=== PATIENT | female | born 1980 | race Caucasian/White ===

== ENCOUNTER 2016-07-24 21:24 | Emergency (ER) | payer OTHER ==
[~2016-07-24] VITALS: Ht 160 cm; Wt 52.3 kg
[2016-07-24 21:27] VITALS: BP 113/76; PULSE 68; RESP 16; O2SAT 100
--- NOTE | 2016-07-24 21:35 | ED.REPORT ---
HPI-General Illness Date of Service Jul 24, 2016 ED Provider: Ryley Saba MD Pt is a healthy 36 y/o female presenting to the ED due to needle stick today at work. The patient was stuck in the left thumb with a needle while working at [employer]. The patient was recapping an insulin syringe and the cap fell off. The source patient is an inpatient at the hospital at that facility. Nursing Notes Stated Complaint: NEEDLE STICK AT WORK Chief Complaint: General Complaint Nursing Notes Reviewed: Yes Allergies: Coded Allergies: No Known Allergies (Unverified , 07/24/16) General Time Seen by MD: 21:32 Chief Complaint Other (needle stick) Hx Obtained From: Patient Arrived By: Walk-in Sudden in Onset?: No Onset Occurred: 1 - 4 hours ago Symptom Duration: Since onset Severity: Current: No pain currently Severity: Maximum: No pain Similar Sx Previous: No Past Medical History Past Medical History Denies Past Surgical History None reported Smoking History Unknown if Ever Smoker Social History Works in healthcare Drug Use: Denies drug use Ambulatory Status Independent Review of Systems +needle stick Full Review of Systems Constitutional: Denies: Chills, Fever Musculoskeletal: Denies: Extremity pain Complete sys rev & neg: except as marked. Physical Exam Vital Signs Vital Signs Date Time Temp Pulse Resp B/P Pulse Ox O2 Delivery O2 Flow Rate FiO2 07/24/16 21:27 36.3 68 16 113/76 100 Room Air Initial VS: Reviewed, Vital signs normal Head / Eyes: Atraumatic, Normocephalic, PERRL ENT: No scleral icterus Neck: Full range of motion Respiratory: No respiratory distress Cardiovascular: Intact distal pulses Abdomen / GI: No distention Skin: Warm, Dry, No cyanosis Neurologic: Alert, Oriented, Nonfocal Psychiatric: Mood/affect normal, Behavior normal, Normal thought content General/Constitutional: Awake, Alert, No acute distress, Well appearing, Well developed, Well hydrated, Well nourished, Cooperative, Not toxic appearing Wrist / Hand: Full range of motion, No swelling, No erythema, Non-tender, No snuffbox tenderness, No deformity, Neurologic intact, Vascular intact, No ligamentous injury, Tendon function NL, No compartment syndrome, No circumferential injury, No clubbing/cyanosis, No edema Needle size puncture raquel over the distal segment of left thumb with no surround erythema, tenderness, or warmth Interpretation & Diagnostics Lab Results Interpretation Test 07/24/16 22:04 Re-Eval/Medical Decision Med Decision/Clinical Course 36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 Patient reports she stuck herself with an insulin syringe. Source patient with unknown history of blood-borne pathogen. At patient's request and after her consent, I spoke with the patient's charge nurse at her Hospital and they were unclear on whether they could draw labs on the source patient and they would be determine in the morning. As a result, I discussed with patient and she requested to be started on HIV postexposure prophylaxis. First dose given here. Per protocol, prescribed Isentress 400 mg by mouth twice a day 30 days. She was drawn for HIV, hepatitis B and C. She will follow up with [facility]. She was given the needlestick packet. She will follow up with her Hospital to determine if the source patient will get labs. Time of Eval: 22:40 Re-Evaluation/Progress Note: Pt rechecked. Informed pt of plan for treatment. Pt understands and agrees with plan for treatment. F/U instructions and RTER warnings given. All questions addressed. Counseled Regarding: Diagnosis, Need for follow-up, When/why to return to ED Discharge & Departure Primary Impression: Needle stick injury of finger Encounter type: initial encounter Qualified Code: S61.239A - Puncture wound without foreign body of unspecified finger without damage to nail, initial encounter Disposition: Home Discharge Condition All VS Reviewed: Yes Condition: Stable Patient Instructions: Needle Stick Injuries (ED) Additional Instructions: Call employee [facility] tomorrow. Take the post-exposure prophylaxis if you choose pending the results of the source of the needle stick. Referrals: [facility] Scribe Attestation Portions of this note were transcribed by Ronal Norris. I, Dr. Saba, personally performed the history, physical exam and medical decision-making; I reviewed and confirmed the accuracy of the information in the transcribed note. Signed by Donato Kirby, 07/24/16 - 2229 Ryley Saba MD Jul 24, 2016 21:35 RONAL NORRIS Jul 24, 2016 22:06
== END 2016-07-24 23:12 | disposition home or self-care (01) ==
LOC: SED 21:24
DX: S61.032A Puncture wound without foreign body of left thumb without damage to nail, initial encounter (principal); W46.0XXA Contact with hypodermic needle, initial encounter; Y93.89 Activity, other specified; Y92.238 Other place in hospital as the place of occurrence of the external cause; Y99.0 Civilian activity done for income or pay
CPT/HCPCS: 36415; 87340; 87536; 87902; 99283; G0433

== ENCOUNTER 2016-11-18 23:34 | Emergency (ER) | payer OTHER ==
[~2016-11-18] VITALS: Ht 160 cm; Wt 52.3 kg
[2016-11-18 23:37] VITALS: BP 124/80; PULSE 60; RESP 20; O2SAT 100
--- NOTE | 2016-11-18 23:50 | ED.REPORT ---
HPI-Rash / Abscess Date of Service Nov 18, 2016 ED Provider: Kevon Montes MD Pt is a 36 y/o female presenting to the ED c/o rash over LLQ and flank onset yesterday. The rash is mildly painful, itchy, and she suspects it is shingles. She is not immunocompromised and does not take steroids. Her occupation is [employer](V[employer]. She has no other complaints or concerns. She has been experiencing stress for the past year caused by a divorce. Nursing Notes Stated Complaint: RASH POSSIBLE SHINGLES Chief Complaint: Skin Rash/Abscess Nursing Notes Reviewed: Yes Allergies: Coded Allergies: No Known Allergies (Unverified , 07/24/16) Scheduled Valacyclovir (Valacyclovir) 1,000 Mg Tablet 1,000 MG PO TID General Time Seen by MD: 23:48 Chief Complaint Rash Hx Obtained From: Patient Arrived By: Walk-in Onset Occurred: 1 day ago Symptom Duration: Since onset Location: : Abdomen: Back Quality: Painful Severity: Current: Mild Severity: Maximum: Mild Recent Healthcare: No recent doctor visit, No recent hospitalization Similar Sx Previous: No Past Medical History Past Medical History Denies Past Surgical History None reported Smoking History Unknown if Ever Smoker 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 Physical Exam Initial Vital Signs Vital Signs (First) Date Time Temp Pulse Resp B/P Pulse Ox O2 Delivery O2 Flow Rate FiO2 11/18/16 23:37 36.8 60 20 124/80 100 Room Air Initial VS: Reviewed, Vital signs normal Head / Eyes: Atraumatic, Normocephalic, PERRL ENT: Mucous membranes moist, Conjunctiva normal, No scleral icterus Neck: Supple, Full range of motion Respiratory: Breath sounds normal, Clear to auscultation, No respiratory distress Cardiovascular: Regular rate & rhythm, Heart sounds normal, Intact distal pulses Abdomen / GI: Soft, Non-tender, No guarding, No rebound, No distention Extremities: Vascular intact, Neuro intact, No swelling Neurologic: Alert, Oriented, Nonfocal Psychiatric: Mood/affect normal, Behavior normal, Normal thought content General/Constitutional: Awake, Alert, No acute distress, Cooperative, Not toxic appearing Skin: Atraumatic, Color NL, Warm, Dry, Intact Color / Condition: Positive: Rash present Rash / Lesion Notes: Clear fluid filled papules over an erythematous base in a dermatomal pattern from the left flank to the left abdomen - consistent with shingles Re-Eval/Medical Decision Med Decision/Clinical Course Patient is a 36-year-old female who presents with rash as described above. Rash is completely consistent with shingles. She is not immunocompromised. No evidence of abscess or cellulitis. Pain is relatively mild. No history of kidney dysfunction. She has been prescribed a course of valacyclovir. She will try topical lidocaine for pain though she has also been prescribed a course of Oakley as needed. I feel that she is appropriate for discharge. She is advised to follow up closely with her primary care physician. Prior to discharge follow-up and return precautions were reviewed in detail with the patient who verbalized understanding and agreement with the plan. The patient was discharged in stable condition. Re-Evaluation/Progress : Time of Eval: 01:04 Re-Evaluation/Progress Note: Pt rechecked. Informed pt of plan for treatment. Pt understands and agrees with plan for treatment. F/U instructions and RTER warnings given. All questions addressed. Counseled Regarding: Diagnosis, Need for follow-up, When/why to return to ED Discharge & Departure Impression: Primary Impression: Shingles Herpes zoster complications: without complications Qualified Code: B02.9 - Zoster without complications Additional Impression: Pain Disposition: Home Discharge Condition All VS Reviewed: Yes Condition: Stable Patient Instructions: Shingles (ED) Additional Instructions: The rash is consistent with singles. Take the medications as prescribed. Use Vicodin 1 tab every 6 hours for severe or breakthrough pain. See the instructions below. Return to the emergency department for any new or worsening symptoms. You have been prescribed a narcotic for pain relief. These drugs are usually combined with acetaminophen (Tylenol#3, Percocet, Darvocet, Anexsia, Vicodin) or aspirin (Empirin#3, Percodan, Synalogs-DC) for increased effect. Narcotics act on the central nervous system to reduce pain; they also impair mental alertness and physical abilities. We advise you not to drink alcohol, drive a car, or operate dangerous equipment when you are taking these drugs. You can lessen stomach irritation from your medicine by taking it with meals or a full glass of water. Common side effects of narcotics are: Nausea and vomiting, heartburn, constipation, dizziness, sleepiness, and mood changes. If you have bothersome side effects or symptoms of an allergic reaction (itching, hives, rash), stop taking your medicine and call your doctor or the emergency room right away. Please keep your narcotic medicine well out of the reach of children. Referrals: [facility] (PCP) [facility] Res[facility] Scribe Attestation Portions of this note were transcribed by Ronal Salas. I, Dr. Montes, personally performed the history, physical exam and medical decision-making; I reviewed and confirmed the accuracy of the information in the transcribed note. Signed by Donato Kirby, 11/19/16 - 0130 Kevon Montes MD Nov 18, 2016 23:50 RONAL SALAS Nov 19, 2016 01:03
[2016-11-19] MEDS ORDERED: _HYDROcodone/APAP 5-325 mg Tablet PO PRN (01:00)
[2016-11-19] MEDS ORDERED: Lidocaine 2% 5 mL Topical Jelly TOPICAL ONE (01:00)
[2016-11-19] MEDS ORDERED: VALA100026 PO (01:03)
== END 2016-11-19 01:17 | disposition home or self-care (01) ==
LOC: SED 23:34
DX: B02.9 Zoster without complications (principal); R10.32 Left lower quadrant pain; F43.9 Reaction to severe stress, unspecified